=== PATIENT | female | born 1945 | race Caucasian/White ===

== ENCOUNTER 2017-06-01 10:13 | Emergency (ER) | payer MEDICARE ==
[~2017-06-01] VITALS: Ht 152.4 cm; Wt 70.0 kg
[~2017-06-01 10:13] MED LIST: DOXYCYCL HYC100 MG PO; PREDNISONE20 MG PO; SYNTHROID25 MCG PO
[2017-06-01] MEDS ORDERED: ZPAK PO (10:54)
[2017-06-01 11:00] VITALS: BP 166/74
== END 2017-06-01 11:00 | disposition home or self-care (01) ==
LOC: ED 10:13
DX: J06.9 Acute upper respiratory infection, unspecified (principal); E07.9 Disorder of thyroid, unspecified

== ENCOUNTER 2017-08-05 12:57 | Emergency (ER) | payer MEDICARE ==
[~2017-08-05] VITALS: Ht 152.4 cm; Wt 60.0 kg
[~2017-08-05 12:57] MED LIST changes: +ZPAK PO
[2017-08-05] MEDS ORDERED: SYNTHROID125 MCG PO (13:24)
[2017-08-05 14:54] VITALS: BP 154/81
== END 2017-08-05 14:54 | disposition home or self-care (01) ==
LOC: ED 12:57
DX: S93.601A Unspecified sprain of right foot, initial encounter (principal); M79.671 Pain in right foot; X50.1XXA Overexertion from prolonged static or awkward postures, initial encounter; Y93.79 Activity, other specified sports and athletics; Y92.830 Public park as the place of occurrence of the external cause

== ENCOUNTER → 2018-09-03 | Outpatient (REF) | payer MEDICARE ==
[~2018-09-03] MED LIST changes: +SYNTHROID125 MCG PO
== END | disposition home or self-care (01) ==
LOC: MAMMO 10:00
PROVIDERS: ATTEND Internal Medicine
DX: Z12.31 Encounter for screening mammogram for malignant neoplasm of breast (principal)